=== PATIENT | male | born 1990 | race Two or more races ===

== ENCOUNTER 2017-10-06 06:32 | Emergency (ER) | payer OTHER ==
[~2017-10-06] VITALS: Ht 175.3 cm; Wt 124.7 kg
[2017-10-06 09:47] VITALS: BP 109/61
[2017-10-06] MEDS ORDERED: TETRACAINE HCL 0.5% OPTH(EYE) SOLN 4ML ONE (11:21)
[2017-10-06] MEDS ORDERED: TETRACAINE HCL 0.5% OPTH(EYE) SOLN 4ML LEFTEYE ONE (11:30)
== END 2017-10-06 12:25 | disposition home or self-care (01) ==
LOC: ER 06:32
DX: H10.89 Other conjunctivitis (principal)
CPT/HCPCS: 99283; J7030

== ENCOUNTER 2023-09-22 03:21 | Emergency (ER) | payer MEDICAID, OTHER ==
[~2023-09-22] VITALS: Ht 175.3 cm; Wt 130.0 kg
[2023-09-22 03:22] VITALS: BP 117/86; PULSE 94; RESP 18; TEMP 99.1; O2SAT 97
[2023-09-22] MEDS: KETOROLAC TROMETH 60MG/2ML VIAL IM ONE (04:08)
[2023-09-22] MEDS: BENZOCAINE (DENTAL) 20 % SPRAY 60ML MT ONE (04:19)
[2023-09-22] MEDS ORDERED: IBUP-1456 PO (05:07)
[2023-09-22] MEDS ORDERED: AUG875T PO (05:07)
== END 2023-09-22 05:19 | disposition home or self-care (01) ==
LOC: ER 03:21 → EDUNIT# 03:21 → EDBD 03:21 → ER 05:17
DX: K02.9 Dental caries, unspecified (principal); F15.90 Other stimulant use, unspecified, uncomplicated
CPT/HCPCS: 96372; 99283; J1885

== ENCOUNTER 2024-05-17 16:33 | Emergency (ER) | payer MEDICAID ==
[~2024-05-17] VITALS: Ht 175.3 cm; Wt 125.0 kg
[~2024-05-17 16:33] MED LIST: AUG875T PO; IBUP-1456 PO
[2024-05-17 17:01] VITALS: BP 133/77; PULSE 88; RESP 22; TEMP 99; O2SAT 95
--- NOTE | 2024-05-17 18:10 | ED.PDOC ---
Back pain HPI HPI Comments PT BIBA FOR RIGHT SIDED FACIAL SWELLING AND PAIN X 45 MINS. PT STATES HE HAS A BROKEN TOOTH ON THAT SIDE. Chief Complaint: Face pain Time Seen by MD: 16:45 Primary Care Provider: SRI Reviewed Notes: Nurses Notes, Medications, Allergies Allergies: Coded Allergies: NO KNOWN ALLERGIES (Unverified , 10/06/17) Home Meds Active Scripts Ibuprofen (Ibuprofen) 800 Mg Tab, 1 TAB PO TID PRN for 5 Days, #15 TAB Prov:SUSIEJENNIE MINE DEVELOPMENT ENGINEER 05/17/24 Amoxicillin & Pot Clavulanate (AUGMENTIN TABLET) 875 Mg Tb, 875 MG PO BID for 7 Days, #14 TAB Prov:SUSIE,JENNIE MINE DEVELOPMENT ENGINEER 05/17/24 Ibuprofen (Ibuprofen) 800 Mg Tab, 800 MG PO Q8HP PRN for 5 Days, #15 TAB Prov:SUSIE,JENNIE MINE DEVELOPMENT ENGINEER 09/22/23 Amoxicillin & Pot Clavulanate (AUGMENTIN TABLET) 875 Mg Tb, 875 MG PO BID for 7 Days, #14 TAB Prov:BAL RICHARDSK MINE DEVELOPMENT ENGINEER 09/22/23 Information Source: Patient Mode of Arrival: EMS Past Medical History PAST MEDICAL HISTORY: Denies Surgical History: Denies all surgeries Family History Family History: Unknown Social History Smoker: Non-Smoker Alcohol: Occasionally Drugs: Marijuana Lives In: Home Constitutional: denies: chills, diaphoresis, fatigue, fever, malaise, sweats, weakness, others EENTM: reports: others (JAW AND FACE PAIN); denies: blurred vision, double v ision, ear bleeding, ear discharge, ear drainage, ear pain, ear ringing, eye pain, eye redness, hearing loss, mouth pain, mouth swelling, nasal discharge, nose bleeding, nose congestion, nose pain, photophobia, tearing, throat pain, throat swelling, voice changes Respiratory: denies: cough, hemoptysis, orthopnea, SOB at rest, shortness of breath, SOB with excertion, stridor, wheezing, others Cardiovascular: denies: chest pain, dizzy spells, diaphoresis, Dyspnea on exertion, edema, irregular heart beat, left arm pain, lightheadedness, palpitations, PND, syncope, others Gastrointestinal: denies: abdomen distended, abdominal pain, blood streaked bowels, constipated, diarrhea, dysphagia, difficulty swallowing, hematemesis, melena, nausea, poor appetite, poor fluid intake, rectal bleeding, rectal pain, vomiting, others Genitourinary: denies: burning, dysuria, flank pain, frequency, hematuria, incontinence, penile discharge, penile sore, pain, testicle pain, testicle swelling, urgency, others Neurological: denies: dizziness, fainting, headache, left sided numbness, left sided weakness, numbness, paresthesia, pre-existing deficit, right sided numbness, right sided weakness, seizure, speech problems, tingling, tremors, weakness, others Musculoskeletal: denies: back pain, gout, joint pain, joint swelling, muscle pain, muscle stiffness, neck pain, others Integumetry: denies: bruises, change in color, change in hair/nails, dryness, laceration, lesions, lumps, rash, wounds, others Allergic/Immunocompromised: denies: Difficulty Healing, Frequent Infections, Hives, Itching, others Hematologic/Lymphatic: denies: anemia, blood clots, easy bleeding, easy bruising, swollen glands, others Endocrine: denies: excessive hunger, excessive sweating, excessive thirst, excessive urination, flushing, intolerance to cold, intolerance to heat, unexplained weight gain, unexplained weight loss, others Psychiatric: denies: anxiety, bipolar disorder, depression, hopeless, panic disorder, schizophrenia, sleepless, suicidal, others Physical Exam General Appearance: No Apparent Distress, Normal HEENT: Pharynx Normal, Other (UPPER MOLAR NUMBER 17 NOTED MODERATE DECAY, CRACKED TOOTH WITH GUM ERYTHEMA NO NOTED VISUAL ABSCESS. RIGHT SIDE OF CHEEK SWOLLEN WARMTH NOTED TENDERNESS ON PALPATION) Neck: Full Range of Motion, Non-Tender, Normal, Normal Inspection Respiratory: Chest Non-Tender, Lungs Clear, No Accessory Muscle Use, No Respiratory Distress, Normal Breath Sounds Cardiovascular: No Edema, No JVD, No Murmur, No Gallop, Normal Peripheral Pulses, Regular Rate/Rhythm Breast Exam: Deferred Gastrointestinal: No Organomegaly, Non Tender, No Pulsatile Mass, Normal Bowel Sounds, Soft Genitalia: Deferred Pelvic: Deferred Rectal: Deferred Extremities: No calf tenderness, Normal capillary refill, Normal inspection, Normal range of motion, Non-tender, No pedal edema Musculoskeletal : Apperance: Normal Neurologic: Alert, log chain worker II-XII nml as Tested, No Motor Deficits, Normal Affect, Normal Mood, No Sensory Deficits Cerebellar Function: Normal Reflexes: Normal Skin: Dry, Normal Color, Warm Lymphatic: No Adenopathy Was a procedure done? Was a procedure done?: No Back Pain Differential Dx Differential Diagnosis: Fracture, Musculoskeletal Pain X-Ray, Labs, Meds, VS Vital Signs Date Time Temp Pulse Resp B/P (MAP) Pulse Ox O2 Delivery O2 Flow Rate FiO2 05/17/24 17:01 99.0 88 18 133/77 (95) 95 99.0 05/17/24 17:01 88 22 95 Room Air 05/17/24 16:45 99.0 88 22 133/77 (95) 95 99.0 Current Medications Medications (Trade) Dose Ordered Sig/Gwen Route Start Time Stop Time Status Last Admin Ketorolac Tromethamine (Toradol Injection) 60 mg ONCE ONCE IM 05/17/24 18:30 05/17/24 18:31 DC 05/17/24 18:29 Ceftriaxone Sodium (Rocephin) 1,000 mg ONCE ONCE IM 05/17/24 18:30 05/17/24 18:31 DC 05/17/24 18:30 Benzocaine (Hurricaine [place]) 1 spr ONCE ONCE MT 05/17/24 18:30 05/17/24 18:31 DC 05/17/24 18:30 Acetaminophen/ Hydrocodone Bitart ([place] 5/325MG Tab) 2 tab ONCE ONCE PO 05/17/24 18:30 05/17/24 18:31 DC 05/17/24 18:30 X-Ray, Labs, Meds, VS Comment PATIENT GIVEN TORADOL 60 MG IM, ROCEPHIN 1 G IM, HURRICAINE SPRAY, AND 2 NORCO. TOLERATED WELL REPORTS IMPROVEMENT PAIN REQUESTING DISCHARGE AT THIS TIME. SCRIPT ANTIBIOTICS. MEDICATIONS PRESCRIBED SIDE EFFECTS DISCUSSED. HE IS TO CALL DENTAL Saturday AND SCHEDULE AN APPOINTMENT FOR RESOLUTION. ER RETURN PRECAUTIONS GIVEN PATIENT INDICATES UNDERSTANDING AGREES WITH DISCHARGE CARE PLAN Time of 1ST Reevaluation: 18:37 Reevaluation 1ST: Improved Patient Education/Counseling: Diagnosis, Treatment, Prognosis, Need For Follow Up Family Education/Counseling: No Family Present Departure 1 Departure Time of Disposition: 18:20 Impression: Primary Impression: Dental abscess Additional Impression: Pain, dental Disposition: 01 HOME / SELF CARE / HOMELESS Condition: Stable e-Prescriptions Ibuprofen (Ibuprofen) 800 Mg Tab 1 TAB PO TID PRN for 5 Days, #15 TAB Prov: JENNIE RICHARDS 05/17/24 Amoxicillin & Pot Clavulanate (AUGMENTIN TABLET) 875 Mg Tb 875 MG PO BID for 7 Days, #14 TAB Prov: JENNIE RICHARDS 05/17/24 Discharged With: Self Critical Care Note Critical Care Time?: No Stability Stability form required: No JENNIE RICHARDS May 17, 2024 18:10
[2024-05-17] MEDS ORDERED: IBUP-1456 PO (18:22)
[2024-05-17] MEDS: KETOROLAC TROMETH 60MG/2ML VIAL IM ONE (18:29)
[2024-05-17] MEDS: HYDROcodone-ACET 5/325MG TAB PO ONE (18:30)
[2024-05-17] MEDS: BENZOCAINE (DENTAL) 20 % SPRAY 60ML MT ONE (18:30)
[2024-05-17] MEDS: cefTRIAXone SOD 1,000 MG VL IM ONE (18:30)
[2024-05-17] MEDS: LIDOCAINE 1% HCL (LOCAL ANESTH.) INJ 20ML MDV ID ONE (18:31)
== END 2024-05-17 18:49 | disposition home or self-care (01) ==
LOC: ER 16:33 → EDBD 16:33 → ER 18:45
DX: K04.7 Periapical abscess without sinus (principal); K08.89 Other specified disorders of teeth and supporting structures; F12.90 Cannabis use, unspecified, uncomplicated; Z79.899 Other long term (current) drug therapy
CPT/HCPCS: 96372; 99284; J0696; J1885; J2003